=== PATIENT | female | born 1990 | race Caucasian/White ===

== ENCOUNTER 2024-08-14 08:45 | Emergency (ER) | payer MEDICAID ==
[~2024-08-14] VITALS: Ht 165.1 cm; Wt 75.0 kg
[2024-08-14 09:02] VITALS: O2SAT 99
[2024-08-14] MEDS ORDERED: AZIT250T12 MT (09:20)
[2024-08-14] MEDS: KETOROLAC 30MG/ML VIAL IM ONE (09:29)
[2024-08-14] MEDS: ACETAMINOPHEN 325MG TABLET PO ONE (09:29)
[2024-08-14 09:48] VITALS: BP 112/72; PULSE 71; RESP 18; TEMP 36.94740; O2SAT 100
== END 2024-08-14 09:52 | disposition home or self-care (01) ==
LOC: ER 08:45
DX: R51.9 Headache, unspecified (principal); Z88.0 Allergy status to penicillin
CPT/HCPCS: 81025; 96372; 99283; J1885; Z7610